=== PATIENT | male | born 1975 ===

== ENCOUNTER 2017-03-10 17:31 | Emergency (ER) | payer SELFPAY ==
[2017-03-10 17:36] VITALS: BP 131/84; PULSE 105; RESP 16; TEMP 98; O2SAT 99
--- NOTE | 2017-03-10 17:58 | ED PDOC ---
HPI: Psych/Substance Abuse Time Seen by Provider: 03/10/17 17:55 Chief Complaint (Nursing): Alcohol Ingestion Chief Complaint (Provider): Alcohol Ingestion History Per: Patient History/Exam Limitations: no limitations Onset/Duration Of Symptoms: Mins (prior to arrival) Current Symptoms Are (Timing): Still Present Additional Complaint(s): Oscar Black is a 41 year old male who presents to the emergency department via EMS after being denied from a snf for alcohol intoxication. Patient admits to drinking. Denies suicidal or homicidal ideation and any further medical complaints. PMD: none Past Medical History Reviewed: Historical Data, Nursing Documentation, Vital Signs Vital Signs: Last Vital Signs Temp 98.0 F 03/10/17 17:33 Pulse 105 H 03/10/17 17:33 Resp 16 03/10/17 17:33 BP 131/84 03/10/17 17:33 Pulse Ox 99 03/10/17 17:33 - Family History Family History: States: Unknown Family Hx - Social History Alcohol: > 2 Drinks/Day - Allergies Allergies/Adverse Reactions: Allergies Allergy/AdvReac Type Severity Reaction Status Date / Time No Known Allergies Allergy Verified 03/10/17 17:33 Review of Systems Constitutional: Negative for: Other (head injury) Psych: Negative for: Suicidal ideation (homicidal ideation) Physical Exam - Reviewed Nursing Documentation Reviewed: Yes Vital Signs Reviewed: Yes - Physical Exam Appears: Positive for: Well, Non-toxic, No Acute Distress Skin: Positive for: Normal Color, Warm, DRY Neck: Positive for: Normal, Painless ROM, Supple Cardiovascular/Chest: Positive for: Regular Rate, Rhythm. Negative for: Murmur Respiratory: Positive for: Normal Breath Sounds. Negative for: Accessory Muscle Use, Respiratory Distress Gastrointestinal/Abdominal: Positive for: Normal Exam, Soft. Negative for: Tenderness Extremity: Positive for: Normal ROM. Negative for: Pedal Edema Neurologic/Psych: Positive for: Alert, Oriented, Other (slurred speech) - ECG O2 Sat by Pulse Oximetry: 99 (RA) Pulse Ox Interpretation: Normal Medical Decision Making Medical Decision Making: Initial Impression: Initial Plan: * Alcohol serum * Accucheck Time: 18:39 --Alcohol quantitative analysis: 353 Scribe Attestation: Documented by Love Peters acting as a scribe for PA. SHANNA Valentin Scriblito Attestation: All medical record entries made by the Scribe were at my direction and personally dictated by me. I have reviewed the chart and agree that the record accurately reflects my personal performance of the history, physical exam, medical decision making, and the department course for this patient. I have also personally directed, reviewed, and agree with the discharge instructions and disposition. Disposition - Clinical Impression Clinical Impression: Alcohol abuse with intoxication - Patient ED Disposition Is Patient to be Admitted: No - Disposition Referrals: [facility] [Outside] Disposition: Routine/Home Disposition Time: 21:38 Condition: FAIR Instructions: Alcohol Intoxication (DC) Print Language: MONGOLIAN
== END 2017-03-10 21:52 | disposition home or self-care (01) ==
LOC: H.ER 17:31
DX: F10.129 Alcohol abuse with intoxication, unspecified (principal)
CPT/HCPCS: 82948; 99281; G0480